=== PATIENT | male | born 1995 | race African-American/Black ===

== ENCOUNTER 2019-06-02 19:22 | Emergency (ER) | payer SELFPAY ==
[~2019-06-02] VITALS: Ht 167.6 cm; Wt 61.0 kg
[2019-06-02] MEDS ORDERED: IPRATROPIUM BROM 0.5 MG/2.5ML INH SOL NEB ONE (19:45)
[2019-06-02] MEDS ORDERED: IBUPROFEN 600 MG TAB PO ONE (19:45)
[2019-06-02] MEDS ORDERED: ALBUTEROL SULF 2.5 MG/0.5ML(0.5%) NEB SOLN NEB ONE (19:45)
[2019-06-03 00:23] VITALS: BP 112/72
[2019-06-03] MEDS ORDERED: IPRATROPIUM BROM 0.5 MG/2.5ML INH SOL NEB ONE (00:45)
[2019-06-03] MEDS ORDERED: ACETAMINOPHEN/CODEINE#3 (300/30mg) TAB PO ONE (00:45)
[2019-06-03] MEDS ORDERED: methylPREDNISolone SOD SUCC 125 MG/2 ML VL IM ONE (00:45)
[2019-06-03] MEDS ORDERED: ALBUTEROL SULF 2.5 MG/0.5ML(0.5%) NEB SOLN NEB ONE (00:45)
== END 2019-06-03 01:06 | disposition home or self-care (01) ==
LOC: ER 19:25
DX: J45.901 Unspecified asthma with (acute) exacerbation (principal); Z91.013 Allergy to seafood
CPT/HCPCS: 94640; 96372; 99284; J2930; J7611; J7644